=== PATIENT | female | born 1980 | race African-American/Black ===

== ENCOUNTER 2019-03-14 19:16 | Emergency (ER) | payer BC ==
--- NOTE | 2019-03-14 20:14 | EDPHYS ---
Physician Documentation [facility] Name: Riddhi Carpio Age: 39 yrs Sex: Female : 1980 Arrival Date: 03/14/2019 Time: 19:18 Bed 7 Private MD: ED Physician Terry Salamanca HPI: 03/14 19:40 This 39 yrs old Black Female presents to ER via Ambulatory with complaints of Sore kb Throat, Ear Pain. 19:40 The patient presents with sore throat. The patient describes throat pain as constant. kb Onset: The symptoms/episode began/occurred yesterday. Severity of symptoms: At their worst the symptoms were moderate, in the emergency department the symptoms are unchanged. Modifying factors: The symptoms are alleviated by nothing, the symptoms are aggravated by swallowing, Patient's oral intake status: good. Associated signs and symptoms: Pertinent positives: earache, Sore throat. The patient has not experienced similar symptoms in the past. The patient has not recently seen a physician. 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 - Social history:: Smoking status: Patient/guardian denies using tobacco. - Ebola Screening: : No symptoms or risks identified at this time. ROS: 19:39 Constitutional: Negative for fever, chills, and weight loss, Neck: Negative for injury, kb pain, and swelling, Cardiovascular: Negative for chest pain, palpitations, and edema, Respiratory: Negative for shortness of breath, cough, wheezing, and pleuritic chest pain, Abdomen/GI: Negative for abdominal pain, nausea, vomiting, diarrhea, and constipation, Back: Negative for injury and pain, MS/Extremity: Negative for injury and deformity, Skin: Negative for injury, rash, and discoloration, Neuro: Negative for headache, weakness, numbness, tingling, and seizure. 19:39 ENT: Positive for ear pain, sore throat. Exam: 19:39 Constitutional: This is a well developed, well nourished patient who is awake, alert, kb and in no acute distress. Head/Face: Normocephalic, atraumatic. Neck: Trachea midline, no thyromegaly or masses palpated, and no cervical lymphadenopathy. Supple, full range of motion without nuchal rigidity, or vertebral point tenderness. No Meningismus. Chest/axilla: Normal chest wall appearance and motion. Nontender with no deformity. No lesions are appreciated. Cardiovascular: Regular rate and rhythm with a normal S1 and S2. No gallops, murmurs, or rubs. Normal PMI, no JVD. No pulse deficits. Respiratory: Lungs have equal breath sounds bilaterally, clear to auscultation and percussion. No rales, rhonchi or wheezes noted. No increased work of breathing, no retractions or nasal flaring. Abdomen/GI: Soft, non-tender, with normal bowel sounds. No distension or tympany. No guarding or rebound. No evidence of tenderness throughout. Back: No spinal tenderness. No costovertebral tenderness. Full range of motion. Skin: Warm, dry with normal turgor. Normal color with no rashes, no lesions, and no evidence of cellulitis. MS/ Extremity: Pulses equal, no cyanosis. Neurovascular intact. Full, normal range of motion. Neuro: Awake and alert, GCS 15, oriented to person, place, time, and situation. Cranial nerves II-XII grossly intact. Motor strength 5/5 in all extremities. Sensory grossly intact. Cerebellar exam normal. Normal gait. 19:39 ENT: External ear(s): are unremarkable, Ear canal(s): are normal, TM's: are normal, Nose: is normal, Mouth: is normal, Posterior pharynx: erythema, that is moderate. Vital Signs: 19:27 Resp 16; Temp 97.6(O); Weight 90.72 kg (R); Height 5 ft. 7 in. (170.18 cm) (R); Pain ak1 7/10; 19:29 BP 169 / 93; Pulse 72; Pulse Ox 100% on R/A; ak1 19:27 Body Mass Index 31.32 (90.72 kg, 170.18 cm) ak1 MDM: 19:21 Patient medically screened. kb 19:40 Data reviewed: vital signs, nurses notes. Data interpreted: Pulse oximetry: on room air kb is 100 %. Interpretation: normal. 20:11 Counseling: I had a detailed discussion with the patient and/or guardian regarding: the kb historical points, exam findings, and any diagnostic results supporting the discharge/admit diagnosis, lab results, the need for outpatient follow up, a family practitioner, to return to the emergency department if symptoms worsen or persist or if there are any questions or concerns that arise at home. 03/14 19:21 Order name: Strep; Complete Time: 20:13 kb 03/14 20:12 Order name: Throat Culture EDMS Administered Medications: No medications were administered Disposition: 20:49 Co-signature as Attending Physician, Terry Salamanca MD I agree with the assessment and wa plan of care. Disposition: 03/14/19 20:13 Discharged to Home. Impression: Acute pharyngitis. - Condition is Stable. - Discharge Instructions: Pharyngitis, Nvjz-lm-Mxka, Viral Respiratory Infection, Eise-Xq-Ptcs, Sore Throat, Vazv-jv-Ctjd. - Medication Reconciliation Form, Thank You Letter, Antibiotic Education, Prescription Opioid Use form. - Follow up: Emergency Department; When: As needed; Reason: Worsening of condition. Follow up: Private Physician; When: 2 - 3 days; Reason: Recheck today's complaints, Continuance of care, Re-evaluation by your physician. Signatures: Dispatcher [employer] EDWV Anu Hensley, BARBARA MORGANP-Charmaine Nix, RN RN ak1 Gera Gandhi William, MD MD wa Corrections: (The following items were deleted from the chart) 20:17 20:13 03/14/2019 20:13 Discharged to Home. Impression: Acute pharyngitis. Condition is wh Stable. Discharge Instructions: Pharyngitis, Esin-qi-Phyr, Viral Respiratory Infection, Pckv-Hw-Qcmm, Sore Throat, Qywy-py-Yqag. Forms are Medication Reconciliation Form, Thank You Letter, Antibiotic Education, Prescription Opioid Use. Follow up: Emergency Department; When: As needed; Reason: Worsening of condition. Follow up: Private Physician; When: 2 - 3 days; Reason: Recheck today's complaints, Continuance of care, Re-evaluation by your physician. kb
--- NOTE | 2019-03-14 20:14 | ER ---
Nurse's Notes [facility] Name: Riddhi Carpio Age: 39 yrs Sex: Female : 1980 Arrival Date: 03/14/2019 Time: 19:18 Bed 7 Private MD: Diagnosis: Acute pharyngitis Presentation: 03/14 19:26 Presenting complaint: Patient states: right ear painX1 day and throat pain since the ak1 day after Thanksgiving. Transition of care: patient was not received from another setting of care. Onset of symptoms is unknown. Risk Assessment: Do you want to hurt yourself or someone else? Patient reports no desire to harm self or others. Initial Sepsis Screen: Does the patient meet any 2 criteria? No. Patient's initial sepsis screen is negative. Does the patient have a suspected source of infection? No. Patient's initial sepsis screen is negative. Care prior to arrival: None. 19:26 Method Of Arrival: Ambulatory ak1 19:26 Acuity: RENUKA 4 ak1 Triage Assessment: 19:27 General: Appears in no apparent distress. 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 - Social history:: Smoking status: Patient/guardian denies using tobacco. - Ebola Screening: : No symptoms or risks identified at this time. Screenin:33 Abuse screen: Denies threats or abuse. Denies injuries from another. Nutritional wh screening: No deficits noted. Tuberculosis screening: No symptoms or risk factors identified. Fall Risk None identified. Assessment: 19:33 General: Appears in no apparent distress. Behavior is calm, cooperative, appropriate wh for age. Pain: Complains of pain in Sore throat. Neuro: Level of Consciousness is awake, alert, obeys commands, Oriented to person, place, time, situation, Appropriate for age. Cardiovascular: Heart tones S1 S2. Respiratory: Airway is patent Respiratory effort is even, unlabored, Respiratory pattern is regular, symmetrical, Breath sounds are clear bilaterally. GI: Abdomen is flat, non-distended. : No signs and/or symptoms were reported regarding the genitourinary system. EENT: Throat is reddened Reports Sore throat. Derm: Skin is intact, is healthy with good turgor, Skin is pink, warm \T\ dry. normal. Musculoskeletal: Circulation, motion, and sensation intact. Vital Signs: 19:27 Resp 16; Temp 97.6(O); Weight 90.72 kg (R); Height 5 ft. 7 in. (170.18 cm) (R); Pain ak1 7/10; 19:29 BP 169 / 93; Pulse 72; Pulse Ox 100% on R/A; ak1 19:27 Body Mass Index 31.32 (90.72 kg, 170.18 cm) ak1 ED Course: 19:18 Patient arrived in ED. ag3 19:21 Anu Hensley FNP-C is [facility]. kb 19:21 Terry Salamanca MD is Attending Physician. kb 19:26 Triage completed. ak1 19:27 Arm band placed on Patient placed in an exam room, on a stretcher, Patient notified of ak1 wait time. 19:33 Gera Gandhi is Primary Nurse. 19:35 Patient has correct armband on for positive identification. Bed in low position. Call light in reach. Side rails up X 1. Pulse ox on. NIBP on. 20:17 No provider procedures requiring assistance completed. Patient did not have IV access during this emergency room visit. Administered Medications: No medications were administered Outcome: 20:13 Discharge ordered by . kb 20:17 Discharged to home ambulatory. 20:17 Condition: stable 20:17 Discharge instructions given to patient, Instructed on discharge instructions, follow up and referral plans. POC URTI, Pharyngitis Demonstrated understanding of instructions, follow-up care, POC 20:17 Patient left the ED. Signatures: Anu Hensley FNP-C FNP-Ckb Krenek, Amber RN RN ak1 Gera Gandhi Tiana Morrison ag3
[2019-03-15 06:23] VITALS: TEMP 97.6
[2019-03-15 06:25] VITALS: BP 169/93; O2SAT 100
== END 2019-03-14 20:17 | disposition home or self-care (01) ==
LOC: ER 19:16
DX: J02.9 Acute pharyngitis, unspecified (principal); Z88.0 Allergy status to penicillin; Z88.1 Allergy status to other antibiotic agents
CPT/HCPCS: 87070; 87081; 99283

== ENCOUNTER 2021-04-19 21:21 | Emergency (ER) | payer BC ==
--- OUTSIDE RECORDS SUMMARY | 2021-04-19 21:25 | XMS REPORT | Continuity of Care Document ---
:1980 Author Organization [facility] t Address [address] [place] [address] Care Team Providers Name Role Phone Malorie Lebron Attending Clinician MALORIE LOCKWOOD Attending Clinician Unavailable Payers Payer Name Policy Type Policy Number Effective Date Expiration Date S ource Problems Condition Condition Condition Status Onset Resolution Last Treating Co mments Source Name Details Category Date Date Treatment Clinician Date No known No known Disease Unive rs active active ity of problems problems [facility] Allergies, Adverse Reactions, Alerts Allergy Allergy Status Severity Reaction(s) Onset Inactive Treating Comm ents Source Name Type Date Date Clinician NO KNOWN Drug Active Univers ALLERGIE Class ity of S [facility] Social History Social Habit Start Date Stop Date Quantity Comments Source Sex Assigned At Uni versity [facility] Exposure to SARS-CoV-2 [facility] Smoking Status Start Date Stop Date Source Unknown if ever smoked Universit y [facility] Medications Ordered Filled Start Stop Current Ordering Indication Dosage Frequency Signature Comments Components Source Medication Medication Date Date Medication? Clinician (SIG) Name Name cephALEXin 2019-0 Yes 500mg 500 mg, Uni vers (KEFLEX) 6-20 Oral, Q6H, ity o f capsule 500 05:00: First dose [place] mg 00 on [facility] 09/22/19 at Branch 0000, Until Discontinu ed, RONALDO
Re ason for Anti-Infec tive: Documented Infection< br>Documen nayely Infection Site: Urine
D uration of Therapy: 7 days cephALEXin 2020-0 2020- No [id number] 500mg Take 1 Univers (KEFLEX) 6-19 06-30 capsule by ity of 500 mg 00:00: 04:59 mouth 3 [place] capsule 00 :00 (three) Medical times [place] daily for 10 days. Vital Signs Vital Name Observation Time Observation Value Comments Source Systolic blood 2019-09-22 04:09:03 129 mm[Hg] Univer sity of pressure [facility] Diastolic blood 2019-09-22 04:09:03 67 mm[Hg] Unive rsity of [facility] Heart rate 2019-09-22 04:09:03 83 /min [facility] Body temperature 2019-09-22 04:09:03 36.78 [facility] Respiratory rate 2019-09-22 04:09:03 18 /min [facility] Oxygen saturation in 2019-09-22 04:09:03 100 /min [facility] Arterial blood by [facility] Pulse oximetry [place] Body height 2019-09-22 02:43:00 170.2 cm [facility] Body weight 2019-09-22 02:43:00 108.863 kg [facility] BMI 2019-09-22 02:43:00 37.59 kg/m2 [facility] Procedures Procedure Date / Time Performed Performing Clinician Sour e URINALYSIS 2019-09-22 03:08:00 Denisse Lockwood [place] o f [facility] COVID-19 (ID NOW RAPID 2019-09-22 03:08:00 Denisse Lockwood [facility] TESTING) [facility] POCT TEST 2019-09-22 03:05:00 Denisse Lockwood [facility] ASSIGNMENT OF BENEFITS 2019-09-22 02:22:37 Doctor Unassigned, No [facility] CONSENT/REFUSAL FOR 2019-09-22 02:18:09 Doctor Unassigned, No [facility] DIAGNOSIS AND [facility] Branch TREATMENT Encounters Start End Encounter Admission Attending Care Care Encounter Source Date/Time Date/Time Type Type Clinicians Facility Department ID 2019-09-21 2019-09-22 Emergency Denisse Lockwood [facility] [id number] [facility] 21:35:16 00:12:00 Malorie Bueno [id number] i [facility] [id number] [facility] [id number] Medi giselle 084 Branch 2019-09-21 2019-09-21 Emergency X Denisse LOCKWOOD [facility] ERT [id number] Univers 21:35:16 21:35:16 [facility] Results Test Description Test Time Test Comments Results Result Comments Source COVID-19 (ID NOW RAPID TESTING) 2019-09-22 03:59:00 Test Item Value Reference Range Interpretation Comme nts SARS-CoV-2 Rapid ID NOW (test code Not Detected Not Detected = 68643-9) AISHWARYA (test code = AISHWARYA) ID NOW COVID-19 Assay is an isothermal nucleic acid amplification test intended for the qualitative detection of nucleic acid from SARS-CoV-2 viral RNA in nasopharyngeal (MEDICAL PRACTICE ADMINISTRATOR) specimens. It is used under Emergency Use Authorization (EUA) by FDA. The limit of detection (LOD) of the assay is 125 Genome Equivalents/mL. A positive result is indicative of the presence of SARS-CoV-2 RNA. ?Clinical correlation with patient history and other diagnostic information is necessary to determine patient infection status. A negative (Not Detected) result does not preclude SARS-CoV-2 infection. In patients with clinical symptoms and other tests that are consistent with SARS-CoV-2 infection, negative results should be treated as presumptive negative and a new specimen should be tested with alternative PCR molecular test. Invalid: Please collect a new specimen for repeat patient testing if clinically indicated. Lab Interpretation (test code = Normal 46721-7) [facility] 03[facility]50:00 Test Item Value Reference Range Interpretation Comments APPEARANCE (test code = Clear Clear 5091727433) COLOR (test code = Yellow Yellow 9338372680) PH (test code = 4.8-8.0 4120723821) SP GRAVITY (test code = 1.003-1.030 8514588286) GLU U QUAL (test code = Normal Normal 0774819220) BLOOD (test code = 3+ Negative A 4024825160) KETONES (test code = Negative Negative 4904556014) PROTEIN (test code = Negative Negative 2887-8) UROBILIN (test code = 4.0 mg/dL Normal A 5564386217) BILIRUBIN (test code = Negative Negative 4171761124) NITRITE (test code = Negative Negative 7740327903) [place] (test code = 25/uL Negative A 5124935262) RBC/HPF (test code = See_Comment H [Autom ated message] 6435444267) The system Lingoing generated this result transmit nayely reference range : 0 - 3 HPF. The refe rence range was not u sed to interpret th is result as normal/abnormal . WBC/HPF (test code = See_Comment H [Autom ated message] 4539358093) The system Lingo[employer] generated this result transmit nayely reference range : 0 - 5 HPF. The refe rence range was not u sed to interpret th is result as normal/abnormal . BACTERIA (test code = Few Negative A 5764222994) MUCOUS (test code = Slight Negative LPF A 8617343740) SQ EPITH (test code = HPF 9146472943) Lab Interpretation (test Abnormal code = 08977-1) [facility] [id number] 03:05:00 Test Item Value Reference Range Interpretation Comments POCT PREG (test code = 1605) neg On board controls acceptable with positive C Line (test code = 3574) POCT PREG LOT # (test code = 3575) [id number] POCT PREG TEST DATE (test 01/01/2021 code = 3576) Lab Interpretation (test code = Normal 84161-9) [facility]
[2021-04-19 22:59] LABS: SARS-COV-2 RT PCR NEGATIVE (NEGATIVE)
--- NOTE | 2021-04-20 00:11 | EDPHYS ---
Physician Documentation [facility] Name: Riddhi Carpio Age: 41 yrs Sex: Female : 1980 Arrival Date: 04/19/2021 Time: 21:23 Bed Waiting Private MD: ED Physician Harmeet Rod HPI: 04/19 22:07 This 41 yrs old Black Female presents to ER via Ambulatory with complaints of Cough, kb Chest Congestion, Sore Throat, Chest Pressure. 22:07 The patient or guardian reports cough. Onset: The symptoms/episode began/occurred kb yesterday. Severity of symptoms: At their worst the symptoms were moderate, in the emergency department the symptoms are unchanged. Modifying factors: The symptoms are alleviated by nothing, the symptoms are aggravated by nothing. Associated signs and symptoms: Pertinent positives: sore throat. The patient has not experienced similar symptoms in the past. The patient has not recently seen a physician. Pt reports cough, chest pain, headache that started yesterday. Sore throat started over a week ago. 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 Flu vaccine is not up to date. - Social history:: Smoking status: Patient denies any tobacco usage or history of. ROS: 22:06 Constitutional: Negative for fever, chills, and weight loss. kb 22:06 ENT: Positive for sore throat. 22:06 Cardiovascular: Positive for chest pain, Negative for edema, orthopnea, palpitations, paroxysmal nocturnal dyspnea. 22:06 Respiratory: Positive for cough, Negative for dyspnea on exertion, hemoptysis, orthopnea, pleurisy, shortness of breath, sputum production, wheezing. 22:06 Neuro: Positive for headache. 22:06 All other systems are negative. Exam: 22:06 Constitutional: This is a well developed, well nourished patient who is awake, alert, kb and in no acute distress. Head/Face: Normocephalic, atraumatic. ENT: Moist Mucous membranes Cardiovascular: Regular rate and rhythm with a normal S1 and S2. No gallops, murmurs, or rubs. No pulse deficits. Respiratory: Respirations even and unlabored. No increased work of breathing. Talking in full sentences Skin: Warm, dry with normal turgor. Normal color. MS/ Extremity: Pulses equal, no cyanosis. Neurovascular intact. Full, normal range of motion. Neuro: Awake and alert, GCS 15, oriented to person, place, time, and situation. Moves all extremities. Normal gait. Psych: Awake, alert, with orientation to person, place and time. Behavior, mood, and affect are within normal limits. 22:10 ECG was reviewed by the Attending Physician. kb Vital Signs: 21:47 BP 165 / 84; Pulse 66; Resp 16; Temp 98.8; Pulse Ox 100% ; Weight 94.35 kg; Height 5 kd3 ft. 7 in. (170.18 cm); Pain 10/10; 21:47 Body Mass Index 32.58 (94.35 kg, 170.18 cm) kd3 MDM: 21:49 Patient medically screened. kb 22:07 Data reviewed: vital signs, nurses notes. Data interpreted: Pulse oximetry: on room air kb is 100 %. Interpretation: normal. 04/20 00:10 Counseling: I had a detailed discussion with the patient and/or guardian regarding: the kb historical points, exam findings, and any diagnostic results supporting the discharge/admit diagnosis, lab results, radiology results, the need for outpatient follow up, a family practitioner, to return to the emergency department if symptoms worsen or persist or if there are any questions or concerns that arise at home. 04/19 21:49 Order name: COVID-19/FLU A+B (Document "Date of Onset" if Symptomatic); Complete Time: kb 23:00 04/19 21:49 Order name: Strep; Complete Time: 22:37 kb 04/19 21:49 Order name: EKG; Complete Time: 21:50 kb 04/19 21:49 Order name: EKG - Nurse/Tech; Complete Time: 22:10 kb 04/19 21:49 Order name: Chest Single View XRAY kb 04/19 22:36 Order name: Throat Culture EDMS EC/16 22:10 Rate is 59 beats/min. Rhythm is regular. QRS [place] is Normal. [place] interval is normal at kb 140 msec. QRS interval is normal at 86 msec. QT interval is normal at 410 msec. Administered Medications: No medications were administered Disposition: 04/20 01:59 Co-signature as Attending Physician, Harmeet Rod MD. [email or web address] Disposition Summary: 04/20/21 00:11 Discharge Ordered Location: Home kb Condition: Stable kb Diagnosis - Acute upper respiratory infection, unspecified kb Followup: kb - With: Emergency Department - When: As needed - Reason: Worsening of condition Followup: kb - With: Private Physician - When: 2 - 3 days - Reason: Recheck today's complaints, Continuance of care, Re-evaluation by your physician Discharge Instructions: - Discharge Summary Sheet kb - Upper Respiratory Infection, Adult, Myay-rq-Mkyc kb - Viral Respiratory Infection, Mmyo-Ip-Miwg kb Forms: - Medication Reconciliation Form kb - Thank You Letter kb - Antibiotic Education kb - Prescription Opioid Use kb Signatures: Dispatcher [employer] EDMS Anu Hensley, DRAFTER COMMERCIAL-C DRAFTER COMMERCIAL-Harmeet Lopez MD MD [facility] Nilsa So, RN RN kd3 Corrections: (The following items were deleted from the chart) 04/19 21:52 21:51 PSHx: None; kd3 kd3
--- NOTE | 2021-04-20 00:11 | ER ---
Nurse's Notes [facility] Name: Riddhi Carpio Age: 41 yrs Sex: Female : 1980 Arrival Date: 04/19/2021 Time: 21:23 Bed Waiting Private MD: Diagnosis: Acute upper respiratory infection, unspecified Presentation: 04/19 21:47 Chief complaint: Patient states: MY CHEST HURTS ON THE RIGHT SIDE. MY THROAT HURTS AND kd3 I HAVE A COUGH AND A HEADACHE. I ALSO HAVE A SORE THROAT. Coronavirus screen: Vaccine status: Patient reports being unvaccinated. Ebola Screen: No symptoms or risks identified at this time. Initial Sepsis Screen: Does the patient meet any 2 criteria? No. Patient's initial sepsis screen is negative. Does the patient have a suspected source of infection? No. Patient's initial sepsis screen is negative. Risk Assessment: Do you want to hurt yourself or someone else? Patient reports no desire to harm self or others. Onset of symptoms was April 18, 2021. 21:47 Method Of Arrival: Ambulatory kd3 21:47 Acuity: RENUKA 4 kd3 Triage Assessment: 21:51 General: Appears in no apparent distress. Behavior is calm, cooperative, appropriate kd3 for age. Pain: Complains of pain in anterior aspect of left upper chest. EENT: No deficits noted. 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 Flu vaccine is not up to date. - Social history:: Smoking status: Patient denies any tobacco usage or history of. Screenin/17 00:20 Abuse screen: Denies threats or abuse. Denies injuries from another. Nutritional kd3 screening: No deficits noted. Tuberculosis screening: No symptoms or risk factors identified. Fall Risk None identified. Assessment: 00:21 Respiratory: Airway is patent Respiratory effort is even, unlabored, Breath sounds are kd3 clear. 00:21 EENT: Throat is reddened. kd3 Vital Signs: 04/19 21:47 BP 165 / 84; Pulse 66; Resp 16; Temp 98.8; Pulse Ox 100% ; Weight 94.35 kg; Height 5 kd3 ft. 7 in. (170.18 cm); Pain 10/10; 21:47 Body Mass Index 32.58 (94.35 kg, 170.18 cm) kd3 ED Course: 21:23 Patient arrived in ED. [id number] 21:43 [facility]C [facility] kb 21:43 Harmeet Rod MD is Attending Physician. kb 21:47 Nilsa So, RN is Primary Nurse. kd3 21:51 Triage completed. kd3 21:51 Arm band placed on right wrist. kd3 22:10 Strep Sent. kd3 22:10 COVID-19/FLU A+B (Document "Date of Onset" if Symptomatic) Sent. kd3 23:04 Chest Single View XRAY In Process Unspecified. EDMS 04/20 00:20 Patient has correct armband on for positive identification. kd3 00:20 No provider procedures requiring assistance completed. Patient did not have IV access kd3 during this emergency room visit. Administered Medications: No medications were administered Outcome: 00:11 Discharge ordered by . kb 00:20 Discharged to home ambulatory. kd3 00:20 Condition: stable 00:20 Discharge instructions given to patient. 00:22 Patient left the ED. kd3 Signatures: Dispatcher [employer] EDFL Anu Hensley FNP-C FNP-Farzaneh Howell [email or web address] Nilsa So, RN RN kd3 Corrections: (The following items were deleted from the chart) 04/19 21:52 21:51 PSHx: None; kd3 kd3
[2021-04-20 00:26] VITALS: BP 165/84; TEMP 98.8; O2SAT 100
--- NOTE | 2021-04-20 13:49 | RAD REPORT ---
EXAM DESCRIPTION: RAD - Chest Single View - 04/19/2021 11:04 pm CLINICAL HISTORY: CHEST PAIN. COMPARISON: None. TECHNIQUE: Single view AP chest radiograph(s). FINDINGS: Trace perihilar interstitial thickening. No infiltrate identified. No pleural effusion. No pneumothorax. Nonenlarged cardiomediastinal silhouette. No significant osseous abnormality. IMPRESSION: Trace perihilar interstitial thickening. No infiltrate identified. 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 The interpreting r adiologist is fully responsible for the content of the report.
--- NOTE | 2021-04-22 07:33 | EKG ---
Test Date: 2021-04-19 Test Time: 22:05:59 Curing Bin Operator: NOEMI MEASUREMENT RESULTS: Intervals: Rate: 59 RI: 140 QRSD: 86 QT: 410 QTc: 405 [place]: P: 9 RI: 140 QRS: 15 T: 3 INTERPRETIVE STATEMENTS: Sinus bradycardia Otherwise normal ECG No previous ECG available for comparison Electronically Signed On 04-22-21 07:26:49 FREIGHT TRAFFIC CONSULTANT by Jeffery Arce
== END 2021-04-20 00:22 | disposition home or self-care (01) ==
LOC: ER 21:21
DX: J06.9 Acute upper respiratory infection, unspecified (principal); Z88.0 Allergy status to penicillin; Z88.1 Allergy status to other antibiotic agents; Z20.822 Contact with and (suspected) exposure to COVID-19
CPT/HCPCS: 93005; 87070; 87081; 0240U; 71045; 99283